=== PATIENT | female | born 1960 | race Two or more races ===

== ENCOUNTER 2021-01-08 12:22 | Emergency (ER) | payer BC ==
[2021-01-08 12:40] VITALS: BP 132/72; PULSE 81
[2021-01-08 14:38] LABS: ANION GAP 18.8 mEq/L (7-13)
[2021-01-08] MEDS ORDERED: Iopamidol 612 MG/ML 100 ML Bottle IVPUSH ONE (14:46)
--- NOTE | 2021-01-08 15:41 | CT ---
PROCEDURE INFORMATION: Exam: CT Abdomen And Pelvis With Contrast Exam date and time: 01/08/2021 3:05 PM Age: 60 years old Clinical indication: Other: Urinary retention; Additional info: Urinary retention, bm difficulty TECHNIQUE: Imaging protocol: Computed tomography of the abdomen and pelvis with contrast. Total images: 270 Radiation optimization: All CT scans at this facility use at least one of these dose optimization techniques: automated exposure control; mA and/or kV adjustment per patient size (includes targeted exams where dose is matched to clinical indication); or iterative reconstruction. Contrast material: ISOVUE 300; Contrast volume: 75 ml; Contrast route: INTRAVENOUS (IV); COMPARISON: No relevant prior studies available. FINDINGS: Lungs: Minimal dependent atelectasis at the lung bases. Liver: Normal. No mass. Gallbladder and bile ducts: Gallstones. Pancreas: Normal. No ductal dilation. Spleen: Normal. No splenomegaly. Adrenal glands: Normal. No mass. Kidneys and ureters: [id number] bilateral hydronephrosis/hydroureter. Stomach and bowel: Unremarkable. No obstruction. No mucosal thickening. Appendix: No evidence of appendicitis. Intraperitoneal space: Unremarkable. No free air. No significant fluid collection. Vasculature: Unremarkable. No abdominal aortic aneurysm. Lymph nodes: Unremarkable. No enlarged lymph nodes. Urinary bladder: The bladder is markedly distended and thick walled. There is some adjacent perivesical stranding/inflammation. Tiny calcification along the inferior bladder. Reproductive: Unremarkable as visualized. Bones/joints: Unremarkable. No acute fracture. Soft tissues: Unremarkable. IMPRESSION: 1. Markedly distended bladder with moderately thickened wall. Correlate for bladder outlet obstruction. Some adjacent inflammation/fat stranding. Correlate for any evidence of underlying urinary tract infection. 2. Mild to moderate bilateral hydronephrosis/hydroureter probably related to bladder distension. 3. Suggestion of very tiny calcification along the inferior bladder. May represent a tiny bladder or proximal urethral calculus. 4. Gallstones.
[2021-01-08] MEDS ORDERED: Levofloxacin/Dextrose 5%-Water 500 MG in Premix Bag 1 BAG IV ONE (16:21)
--- NOTE | 2021-01-08 17:23 | EDM.PDOC ---
Scribed by Hoda Herman 01/08/21 1546 for Roseline Neely NP ED HPI GENERAL MEDICAL PROBLEM - General Chief Complaint: Gastrointestinal Problem Stated Complaint: NO BM Time Seen by Provider: 01/08/21 13:36 Source of Information: Reports: Patient, RN, RN Notes Reviewed History Limitations: Reports: No Limitations - History of Present Illness INITIAL COMMENTS - FREE TEXT/NARRATIVE: Patient is a 60-year-old female who presents to ER with complaint of difficulty with urination and bowel movements. Last urination was 0300 A.M. and last bowel movement was x3 very small this A.M.--liquid. Her last normal bowel movement was Saturday. She has burning with urination. She rates her pain 8/10 and sharp. No fever, chills, nausea, vomiting, chest pain, shortness of breath and cough. 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 ED EXAM, GENERAL - Physical Exam Exam: See Below Exam Limited By: No Limitations General Appearance: Alert, WD/WN, No Apparent Distress Eye Exam: Bilateral Eye: EOMI, Normal Inspection, PERRL Ears: Normal External Exam, Normal Canal, Hearing Grossly Normal, Normal TMs Nose: Normal Inspection, Normal Mucosa, No Blood Throat/Mouth: Normal Inspection, Normal Lips, Normal Teeth, Normal Gums, Normal Oropharynx, Normal Voice, No Airway Compromise Head: Atraumatic, Normocephalic Neck: Normal Inspection, Supple, Non-Tender, Full Range of Motion Respiratory/Chest: No Respiratory Distress, Lungs Clear, Normal Breath Sounds, No Accessory Muscle Use, Chest Non-Tender Cardiovascular: Normal Peripheral Pulses, Regular Rate, Rhythm, No Edema, No Gallop, No JVD, No Murmur, No Rub GI/Abdominal: Tender, Other (decreased bowel sounds) (Female) Exam: Deferred Rectal (Female) Exam: Deferred Back Exam: Normal Inspection, Full Range of Motion, NT Extremities: Normal Inspection, Normal Range of Motion, Non-Tender, Normal Capillary Refill, No Pedal Edema Neurological: Alert, Oriented, CN II-XII Intact, Normal Cognition, Normal Gait, Normal Reflexes, No Motor/Sensory Deficits Psychiatric: Normal Affect, Normal Mood Skin Exam: Warm, Dry, Intact, Normal Color, No Rash Lymphatic: No Adenopathy Course - Vital Signs Last Recorded V/S: Last Vital Signs Temp 98.2 F 01/08/21 12:40 Pulse 81 01/08/21 12:40 Resp 18 01/08/21 12:40 BP 132/72 01/08/21 12:40 Pulse Ox 98 01/08/21 12:40 - Orders/Labs/Meds Orders: Active Orders 24 hr Category Date Time Status Insert Urinary Catheter [OM.PC] Q24H Care 01/08/21 14:00 Ordered CULTURE URINE [RM] Stat Lab 01/08/21 14:58 Received Labs: Laboratory Tests 01/08/21 01/08/21 01/08/21 Range/Units 14:14 14:14 14:58 WBC 13.7 H (5.0-10.0) 10^3/uL RBC 4.38 (4.2-5.4) 10^6/uL Hgb 12.5 (12.0-16.0) g/dL Hct 38.8 (37.0-47.0) % MCV 88.6 (80-100) fL MCH 28.5 (27.0-34.0) pg MCHC 32.2 L (33.0-35.0) g/dL Plt Count 211 (150-450) 10^3/uL Neut % (Auto) 62.3 (42.2-75.2) % Lymph % (Auto) 27.4 (20.5-50.1) % [place] % (Auto) 9.3 H (2-8) % Eos % (Auto) 0.9 L (1.0-3.0) % Baso % (Auto) 0.1 (0.0-1.0) % Sodium 137 (136-145) mmol/L Potassium 3.8 (3.5-5.1) mmol/L Chloride 99 (98-107) mmol/L Carbon Dioxide 23 (21-32) mmol/L Anion Gap 18.8 H (7-13) mEq/L BUN 14 (7-18) mg/dL Creatinine 1.09 H (0.55-1.02) mg/dL Est Cr Clr Drug Dosing 39.42 mL/min Estimated GFR (MDRD) 51 BUN/Creatinine Ratio 12.8 (No establ ref range) Glucose 154 H (74-99) mg/dL Calcium 9.2 (8.5-10.1) mg/dL Total Bilirubin 0.7 (0.2-1.0) mg/dL AST 22 (15-37) U/L ALT 24 (14-59) U/L Alkaline Phosphatase 101 (46-116) U/L C-Reactive Protein 2.2 H (0.0-0.9) mg/dL Total Protein 8.4 H (6.4-8.2) g/dL Albumin 3.9 (3.4-5.0) g/dL Globulin 4.5 Albumin/Globulin Ratio 0.9 Urine Color Yellow (YELLOW) Urine Appearance Turbid (CLEAR) Urine pH 5.0 (5.0-9.0) Ur Specific [place] 1.015 (1.005-1.030) Urine Protein Trace H (NEGATIVE) Urine Glucose (UA) Negative (NEGATIVE) Urine Ketones Negative (NEGATIVE) Urine Occult Blood Large H (NEGATIVE) Urine Nitrite Negative (NEGATIVE) Urine Bilirubin Negative (NEGATIVE) Urine Urobilinogen 0.2 (0.2-1.0) mg/dL Ur Leukocyte Esterase Moderate H (NEGATIVE) Urine RBC >100 H /HPF Urine WBC 30-40 H (0-5/HPF) /HPF Ur Epithelial Cells Moderate H (NOT SEEN) /HPF Amorphous Sediment Few (NOT SEEN) /HPF Urine Bacteria Many H (0-FEW/HPF) /HPF Urine Mucus Few H (NOT SEEN) /LPF Meds: Medications Discontinued Medications Generic Name Dose Route Start Last Admin Trade Name Freq PRN Reason Stop Dose Admin Levofloxacin/Dextrose 500 mg/ 100 mls @ 100 mls/hr 01/08/21 16:21 01/08/21 16:26 Premix IV 01/08/21 17:20 100 mls/hr ONETIME ONE Administration Iopamidol 100 ml 01/08/21 14:46 01/08/21 15:09 Isovue-300 (61%) IVPUSH 01/08/21 14:47 75 ml ONETIME ONE Administration - Radiology Interpretation Free Text/Narrative:: CT abdomen and pelvis: PROCEDURE INFORMATION: Exam: CT Abdomen And Pelvis With Contrast Exam date and time: 01/08/2021 3:05 PM Age: 60 years old Clinical indication: Other: Urinary retention; Additional info: Urinary retention, bm difficulty TECHNIQUE: Imaging protocol: Computed tomography of the abdomen and pelvis with contrast. Total images: 270 Radiation optimization: All CT scans at this facility use at least one of these dose optimization techniques: automated exposure control; mA and/or kV adjustment per patient size (includes targeted exams where dose is matched to clinical indication); or iterative reconstruction. Contrast material: ISOVUE 300; Contrast volume: 75 ml; Contrast route: INTRAVENOUS (IV); COMPARISON: No relevant prior studies available. FINDINGS: Lungs: Minimal dependent atelectasis at the lung bases. Liver: Normal. No mass. Gallbladder and bile ducts: Gallstones. Pancreas: Normal. No ductal dilation. Spleen: Normal. No splenomegaly. Adrenal glands: Normal. No mass. Kidneys and ureters: [id number] bilateral hydronephrosis/hydroureter. Stomach and bowel: Unremarkable. No obstruction. No mucosal thickening. Appendix: No evidence of appendicitis. Intraperitoneal space: Unremarkable. No free air. No significant fluid collection. Vasculature: Unremarkable. No abdominal aortic aneurysm. Lymph nodes: Unremarkable. No enlarged lymph nodes. Urinary bladder: The bladder is markedly distended and thick walled. There is some adjacent perivesical stranding/inflammation. Tiny calcification along the inferior bladder. Reproductive: Unremarkable as visualized. Bones/joints: Unremarkable. No acute fracture. Soft tissues: Unremarkable. IMPRESSION: 1. Markedly distended bladder with moderately thickened wall. Correlate for bladder outlet obstruction. Some adjacent inflammation/fat stranding. Correlate for any evidence of underlying urinary tract infection. 2. Mild to moderate bilateral hydronephrosis/hydroureter probably related to bladder distension. 3. Suggestion of very tiny calcification along the inferior bladder. May represent a tiny bladder or proximal urethral calculus. 4. Gallstones. Thank you for allowing us to participate in the care of your patient Departure - Departure Time of Disposition: 17:22 Disposition: Home, Self-Care 01 Condition: Fair Clinical Impression: Urinary retention - Discharge Information *PRESCRIPTION DRUG MONITORING PROGRAM REVIEWED*: No *COPY OF PRESCRIPTION DRUG MONITORING REPORT IN PATIENT COLIN: No Instructions: Acute Urinary Retention, Female, Acute Urinary Retention, Female, [id number] Forms: ED Department Discharge Additional Instructions: RX: Levaquin Drink plenty of water Return to the ER with any further problems Follow up with your primary care facility for Urology consult Sepsis Event Note (ED) - Evaluation Sepsis Screening Result: No Definite Risk - Focused Exam Vital Signs: Vital Signs Temp Pulse Resp BP Pulse Ox 01/08/21 12:40 98.2 F 81 18 132/72 98 - My Orders Last 24 Hours: My Active Orders 01/08/21 14:00 Insert Urinary Catheter [OM.PC] Q24H 01/08/21 14:58 CULTURE URINE [RM] Stat - Assessment/Plan Last 24 Hours: My Active Orders 01/08/21 14:00 Insert Urinary Catheter [OM.PC] Q24H 01/08/21 14:58 CULTURE URINE [RM] Stat I have read and agree with the documentation that has been completed regarding this visit. By signing this record, I attest that the documentation was completed in my physical presence and is an accurate record of the encounter.
== END 2021-01-08 17:38 | disposition home or self-care (01) ==
LOC: DL.ED 12:22
DX: R33.9 Retention of urine, unspecified (principal); E11.9 Type 2 diabetes mellitus without complications; Z79.84 Long term (current) use of oral hypoglycemic drugs
CPT/HCPCS: 36415; 74177; 80053; 81001; 85025; 86140; 87086; 87088; 87186; 96365; 99284; J1956; Q9967